=== PATIENT | male | born 1950 | race Caucasian/White ===

== ENCOUNTER 2023-07-26 13:03 | Emergency (ER) | payer OTHER ==
[2023-07-26] MEDS ORDERED: Aspirin 81 MG Tab.Chew PO ONE (13:39)
[2023-07-26 14:03] LABS: BASOPHILS ABSOLUTE AUTO 0.03 K/uL (0.00-0.10); BASOPHILS PERCENT AUTO 0.3 % (0.1-1.3); EOSINOPHILS ABSOLUTE AUTO 0.06 K/uL (0.00-0.40); EOSINOPHILS PERCENT AUTO 0.5 % (0.0-5.4); HEMATOCRIT 44.9 % (38.4-49.7); HEMOGLOBIN 15.1 g/dL (12.9-16.9); IMMATURE GRAN ABSOLUTE AUTO 0.05 K/uL (0.00-0.23); IMMATURE GRAN PERCENT AUTO 0.4 % (0.0-0.7); LYMPHOCYTES ABSOLUTE AUTO 1.31 K/uL (0.8-3.3); LYMPHOCYTES PERCENT AUTO 11.3 % (11.4-47.7); MEAN CORPUSCULAR HEMOGLOBIN 28.3 pg (31.6-35.5); MEAN CORPUSCULAR HGB CONC 33.6 g/dL (31.6-35.5); MEAN CORPUSCULAR VOLUME 84.1 fL (81.4-99.0); MONOCYTES ABSOLUTE AUTO 0.63 K/uL (0.20-0.90); MONOCYTES PERCENT AUTO 5.4 % (3.3-12.6); NEUTROPHILS ABSOLUTE AUTO 9.56 K/uL (1.0-7.6); NEUTROPHILS PERCENT AUTO 82.1 % (40.0-78.1); PLATELET COUNT,PLT 225 K/uL (130-375); RED BLOOD CELL COUNT 5.34 M/uL (4.14-5.76); WHITE BLOOD CELL COUNT,WBC 11.6 K/uL (3.2-11.0)
[2023-07-26 14:24] LABS: ANION GAP 8.4 mmol/L (5.0-14.0); CALCIUM 8.8 mg/dL (8.5-10.1); CREATININE 1.5 mg/dL (0.8-1.3); EST CRCL DRUG DOSING (CG) 44.61 mL/min; POTASSIUM,K 3.8 mmol/L (3.6-5.2)
[2023-07-26 14:25] LABS: TROPONIN I HIGH SENSITIVITY 220.2 pg/mL (<=60.3)
[2023-07-26] MEDS ORDERED: Heparin Sodium 5,000 Units/ML Vial IVPUSH ONE (14:26)
[2023-07-26] MEDS ORDERED: Heparin Sodium/D5W 25,000 UNITS/500 ML BAG IV SCH (14:30)
[2023-07-26] MEDS: Nitroglycerin 0.4 MG Tab.SL SL PRN ×2 (15:15→17:36)
[2023-07-26 16:52] VITALS: PULSE 62
[2023-07-26 17:47] VITALS: BP 124/92
== END 2023-07-26 17:51 ==
LOC: JP.ED 13:03
DX: I21.4 Non-ST elevation (NSTEMI) myocardial infarction (principal); I10 Essential (primary) hypertension; Z79.899 Other long term (current) drug therapy
CPT/HCPCS: 36415; 71046; 80048; 84484; 85025; 93010; 96365; 96366; 99285; A9270; J1644